=== PATIENT | female | born 1980 | race Caucasian/White ===

== ENCOUNTER 2017-03-12 18:12 | Emergency (ER) | payer OTHER ==
[~2017-03-12] VITALS: Ht 175.3 cm; Wt 93.7 kg
[~2017-03-12 18:12] MED LIST: FLEXERIL10 MG PO; MOTRIN800 MG PO; NAPROSYN500 MG PO
[2017-03-12 19:02] LABS: HEMATOCRIT 37.5 % (36.0-46.0); HEMOGLOBIN 11.8 G/DL (11.9-15.5); MCH 25.4 PG (29.0-34.0); MCHC 31.5 G/DL (30.0-36.0); MCV 80.8 FL (83-99); PLATELET COUNT 310 K/uL (156-360); RBC DIS.WIDTH-CV 14.3 % (11.8-14.6); RED BLOOD COUNT 4.64 M/uL (3.80-5.20); WHITE BLOOD COUNT 5.1 K/uL (4.1-10.2)
[2017-03-12 19:11] LABS: ALBUMIN 4.2 g/dL (3.2-4.8)
[2017-03-12 19:12] LABS: CHLORIDE 106 mEq/L (99-109); POTASSIUM 3.7 mEq/L (3.7-5.4); SODIUM 140 mEq/L (136-147)
[2017-03-12 19:14] LABS: GLUCOSE 90 mg/dL (70-99); TOTAL PROTEIN 7.8 g/dL (6.4-8.3)
[2017-03-12 19:16] LABS: TOTAL BILIRUBIN 0.2 mg/dL (0.0-1.0)
[2017-03-12 19:17] LABS: ALKALINE PHOSPHATASE 80 IU/L (3-129)
[2017-03-12 19:18] LABS: CREATININE 0.8 mg/dL (0.6-1.3); GFR ESTIMATE (CALCULATED) > 59 mL/min/
[2017-03-12 19:19] LABS: AST (GOT) 24 IU/L (2-34); UREA NITROGEN (BUN) 8 mg/dL (9-23)
[2017-03-12 19:20] LABS: ALT (GPT) 31 IU/L (3-49)
[2017-03-12 19:30] LABS: QUANTITATIVE HCG < 4.0 MIU/ML
[2017-03-12 19:57] LABS: D-DIMER ELISA < 150.00 ng/mLDDU (<230)
[2017-03-12 20:41] LABS: TROP-I INTERPRETATION NEGATIVE; TROPONIN-I < 0.01 ng/mL (0.0-0.30)
[2017-03-12] MEDS ORDERED: PREDNISONE10 M1 PO (21:13)
[2017-03-12 21:22] VITALS: BP 138/98
== END 2017-03-12 21:23 | disposition home or self-care (01) ==
LOC: EME 18:12
PROVIDERS: Physician Assistant
DX: B34.9 Viral infection, unspecified (principal); J45.909 Unspecified asthma, uncomplicated; F32.9 Major depressive disorder, single episode, unspecified
CPT/HCPCS: 71046; 80053; 84484; 84702; 85027; 85379; 93005; 94640; 99281; 99284